=== PATIENT | male | born 2000 | race Caucasian/White ===

== ENCOUNTER 2024-01-30 10:22 | Emergency (ER) | payer OTHER, SELFPAY ==
[2024-01-30 10:28] VITALS: BP 125/72; PULSE 79; RESP 15; TEMP 36.9; O2SAT 97; BMI 25.8
--- NOTE | 2024-01-30 11:48 | ED_ITS ---
HPI - Wound/Laceration <Daria Rosa PA-C - Last Filed: 01/30/24 19:05> General Chief Complaint: Wound/Laceration Stated Complaint: finger laceration Time Seen by Provider: 01/30/24 11:11 Source: patient Mode of arrival: Ambulatory History of Present Illness HPI narrative: 23-year-old male presents with concern for an injury to his left index finger. 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 He states it bled ?a lot? and he put some antibiotic ointment on it and then a Band-Aid was able to get the bleeding to stop. He says he came in today because he talked to a nurse line and they advised he come in since this is something that can not be closed with stitches in their opinion. He denies any other injuries complaints or concerns. He does not take blood thinners. Related Data Allergies Allergy/AdvReac Type Severity Reaction Status Date / Time No Known Drug Allergies Allergy Verified 01/30/24 10:28 Review of Systems <Daria Rosa PA-C - Last Filed: 01/30/24 19:05> Review of Systems Narrative: See HPI Patient History <Daria Rosa PA-C - Last Filed: 01/30/24 19:05> Social History Smoking Status: Unknown if ever smoked Smoking Status: Unknown if ever smoked alcohol intake frequency: holidays/special occasions only Substance Use Type: does not use Exam <Daria Rosa PA-C - Last Filed: 01/30/24 19:05> Narrative Exam Narrative: GENERAL: 23 year old patient appears stated age. Well-developed patient, in mild distress. HEAD: Atraumatic. Normocephalic. EYES: Pupils equal round and reactive. Extraocular motions intact. No scleral icterus. No injection or drainage. ENT: Nose without bleeding, purulent drainage. Throat without erythema, tonsillar hypertrophy or exudate. Airway patent. NECK: Trachea midline. CARDIOVASCULAR: Regular rate and rhythm RESPIRATORY: No increased work of breathing or respiratory distress EXTREMITIES: After removal of Band-Aid on the left index finger distal there is no bleeding actively. There is a approximately 3 mm by 5 mm skin avulsion that is not quite full-thickness on the lateral aspect of the finger that does not affect the nail bed. Range of motion of the affected finger and strength are intact. There is no bleeding returned with cleaning of the area. No edema or joint tenderness. NEURO: AOx3. SKIN: No rash or erythema of visible areas Initial Vital Signs Initial Vital Signs: Vital Signs Temperature 98.4 F 01/30/24 10:28 Pulse Rate 79 01/30/24 10:28 Respiratory Rate 15 01/30/24 10:28 Blood Pressure 125/72 01/30/24 10:28 Pulse Oximetry 97 01/30/24 10:28 Oxygen Delivery Method Room Air 01/30/24 10:28 <Jose Garcia MD - Last Filed: 02/02/24 19:25> Initial Vital Signs Initial Vital Signs: Vital Signs Temperature 98.4 F 01/30/24 10:28 Pulse Rate 79 01/30/24 10:28 Respiratory Rate 15 01/30/24 10:28 Blood Pressure 125/72 01/30/24 10:28 Pulse Oximetry 97 01/30/24 10:28 Oxygen Delivery Method Room Air 01/30/24 10:28 Course <Daria Rosa PA-C - Last Filed: 01/30/24 19:05> Vital Signs Vital signs: Vital Signs - 8 hr 01/30/24 12:25 Temperature 98.2 F Pulse Rate 70 Blood Pressure 137/63 Pulse Oximetry 99 Oxygen Delivery Method Room Air <Jose Garcia MD - Last Filed: 02/02/24 19:25> Vital Signs Vital signs: Vital Signs - 8 hr 01/30/24 12:25 Temperature 98.2 F Pulse Rate 70 Blood Pressure 137/63 Pulse Oximetry 99 Oxygen Delivery Method Room Air MDM - Wound/Laceration <Daria Rosa PA-C - Last Filed: 01/30/24 19:05> Differential Diagnosis Differential diagnosis: Likely avulsion of skin Medical Records Attestation: I reviewed the patient's medical records. MDM Narrative Medical decision making narrative: This is a well-appearing 23-year-old male who presents to the ER with concern for a skin avulsion on his distal index finger. There is no ongoing bleeding on exam and after removal of bandage. Injury occurred approximately 3 hours ago. Patient's tetanus is up-to-date in the last 5 years per patient, this wound is not amenable to sutures and is fairly superficial. Dressed with Xeroform and gauze and aluminum foam finger splint applied. Patient is advised to minimize use of this finger for the next few days until capillary beds heal better, may use topical antibiotic ointment on the area. Keep the area otherwise clean and dry. Monitor for signs of infection. No need for work restrictions based on nature of injury and type of work. Return precautions provided, follow-up plan discussed, all questions answered. Discharge Plan Departure Patient Disposition: Home Clinical Impression: Avulsion of skin Instructions: DI for Minor Laceration Activity Restrictions/Additional Instructions: *You have been diagnosed with avulsion of skin of left index finger *What to do: *Please continue to take your regular medications as directed. [ ] New medication prescriptions sent to your pharmacy: [ ] [ ] New medication written as a paper prescription [ X] No new medications given *Please follow up with your primary care provider in 2-3 days, call for an appointment. Let them know you were seen in the Emergency Department and that we ask that you be seen in follow up. We will electronically transmit a record of today's note if your PCP is in our system. You sliced a small chunk of skin off the side of your index finger near the nail this morning, because you have a lot of capillary beds in her fingertip these do tend to bleed a fair amount. However your bleeding was controlled today in the emergency department. We did not require any blood stpping dressings or other interventions; we did clean the area and place a dressing and provide you with a finger splint. This wound will have to heal by secondary intention from the inside out and from the edges in. It is not amenable to stitches given the nature of the wound. Please monitor for signs of infection including increasing redness swelling or pain at the site of the wound. You may use topical antibiotic ointment on the area otherwise try to keep it clean and dry and bandaged it is okay to use a simple Band-Aid however I do recommend using the finger splint when you are doing activities or perhaps even at night for the next day or 2 so that you do not irritate the area and cause return of bleeding. If it does begin to bleed again applied direct pressure and hold it for at least 5 minutes without stopping this should control the bleeding. If you have any other concerns please make sure you get re- evaluated. *If you do not have a primary care provider please contact the [facility] Resource line at [phone]. They will ask some questions about your medical history and help get you set up with a doctor in the community. *Return to Emergency Department if you should have any new, worsening or concerning symptoms, such as [fever greater than 101 F, shaking chills, worsening pain, persistent vomiting or other bothersome symptoms] Stand Alone Forms: Patient Portal/API ED Sign-out <Jose Garcia MD - Last Filed: 02/02/24 19:25> Cosign ED Attending Kiranature Attestation: I was immediately available in the department for consultation. ?This documentation has been reviewed and I agree with assessment and plan. Supervised by Jose Garcia MD
[2024-01-30 12:25] VITALS: BP 137/63; PULSE 70; TEMP 36.8; O2SAT 99
== END 2024-01-30 12:26 | disposition home or self-care (01) ==
PROVIDERS: Emergency Provider Student in an Organized Health Care Education/Training Program
DX: S61.211A Laceration without foreign body of left index finger without damage to nail, initial encounter (principal); W26.0XXA Contact with knife, initial encounter
CPT/HCPCS: 29130; 99283